=== PATIENT | female | born 1985 | race Caucasian/White ===

== ENCOUNTER 2018-04-02 10:49 | Emergency (ER) | payer MEDICAID ==
[2018-04-02 10:49] VITALS: BMI 28.9
[2018-04-02 11:04] VITALS: RESP 18
[2018-04-02 11:46] LABS: BASO % 0.4 % (0.0-2.0); EOS # 0.1 K/uL (0.0-0.7); EOS % 0.7 % (0.0-4.0); HEMOGLOBIN 12.7 g/dL (11.0-16.0); LYMPH # 2.7 K/uL (1.0-4.3); LYMPH % 37.4 % (20.0-40.0); MEAN CELL VOLUME 84.6 fL (81.0-99.0); MEAN CORPUSCULAR HEMOGLOBIN 27.9 pg (27.0-31.0); MEAN PLATELET VOLUME 7.9 fL (7.2-11.7); MONO # 0.5 K/uL (0.0-0.8); MONO % 7.2 % (0.0-10.0); NEUT # 3.9 K/uL (1.8-7.0); NEUT % 54.3 % (50.0-75.0); RBC 4.54 Mil/uL (3.80-5.20); RED CELL DISTRIBUTION WIDTH 13.8 % (11.5-14.5); WHITE BLOOD COUNT 7.2 K/uL (4.8-10.8)
[2018-04-02 11:55] LABS: URINE BILIRUBIN NEGATIVE (NEGATIVE); URINE BLOOD NEGATIVE (NEGATIVE); URINE CLARITY Clear (Clear); URINE COLOR Yellow (YELLOW); URINE GLUCOSE (UA) NORMAL (Normal); URINE LEUKOCYTE ESTERASE NEG Leu/uL (Negative); URINE PROTEIN NEGATIVE (NEGATIVE); URINE UROBILINOGEN NORMAL mg/dL (0.2-1.0)
[2018-04-02 11:59] LABS: ALB/GLOB RATIO 1.4 (1.0-2.1); ALBUMIN 4.4 g/dL (3.5-5.0); ALT/SGPT 21 U/L (9-52); AST/SGOT 14 U/L (14-36); BLOOD UREA NITROGEN 9 mg/dL (7-17); CALCIUM 8.8 mg/dl (8.6-10.4); GFR NON-AFRICAN AMERICAN > 60; LIPASE 109 U/L (23-300)
--- NOTE | 2018-04-02 13:09 | RAD ---
Abdomen three views History: Abdominal pain. Comparison: None available. Findings Lung fitzgerald are clear. Heart size within normal limits. Moderate fecal retention in the colon. Few mildly distended loops of small bowel seen in the mid abdomen. Impression: Moderate fecal retention in the colon.
[2018-04-02] MEDS ORDERED: Bisacodyl 5mg EC Tab PO ONE (13:40)
--- NOTE | 2018-04-02 13:57 | C.PDOC ---
History Of Present Illness 32 year old female presents to the emergency department with complaints of abdominal discomfort for the past 3 weeks. Patient states that her last bowel movement was one week ago and denies any nausea, vomiting, diarrhea, urinary symptoms, vaginal bleeding or vaginal discharge. Patient is able to tolerate food by mouth. Time Seen by Provider: 04/02/18 11:11 Chief Complaint (Nursing): Abdominal Pain History Per: Patient History/Exam Limitations: no limitations Onset/Duration Of Symptoms: Days Current Symptoms Are (Timing): Still Present Past Medical History Reviewed: Historical Data, Nursing Documentation, Vital Signs Vital Signs: Last Vital Signs Temp 98.3 F 04/02/18 14:18 Pulse 70 04/02/18 14:18 Resp 18 04/02/18 14:18 BP 125/83 04/02/18 14:18 Pulse Ox 99 04/02/18 14:44 - Medical History PMH: Diabetes - [facility] Procedures BREAST DX PROCEDURE NEC (05/01/14) DX ULTRASOUND-THORAX NEC (05/01/14) LOCAL EXCIS BREAST LES (07/31/14) PERCUTAN NEEDLE BIOPSY OF BREAST (05/01/14) Family History: States: No Known Family Hx - Social History Hx Tobacco Use: No Hx Alcohol Use: No Hx Substance Use: No Review Of Systems Except As Marked, All Systems Reviewed And Found Negative. Gastrointestinal: Positive for: Other (Abdominal discomfort) Physical Exam - Physical Exam Appears: Non-toxic, No Acute Distress Skin: Normal Color, Warm, Dry Head: Atraumatic, Normacephalic Eye(s): bilateral: Normal Inspection, PERRL, EOMI Nose: Normal Oral Mucosa: Moist Neck: Supple Chest: Symmetrical Cardiovascular: Rhythm Regular, No Murmur Respiratory: Normal Breath Sounds, No Rales, No Rhonchi, No Wheezing Gastrointestinal/Abdominal: Tenderness (minimal; diffusely), No Guarding, No Rebound Extremity: Bilateral: Atraumatic, Normal Color And Temperature, Normal ROM Neurological/Psych: Oriented x3, Normal Speech ED Course And Treatment - Laboratory Results Result Diagrams: 04/02/18 11:40 04/02/18 11:40 O2 Sat by Pulse Oximetry: 99 (RA) Pulse Ox Interpretation: Normal Medical Decision Making Medical Decision Making: Impression: Abdominal discomfort Plan: -Labs -Urinalysis -Dulcolax -Pepcid -Toradol Final diagnosis: Constipation On re-evaluation, patient is resting comfortably, tolerating PO, and abdomen remains soft. Patient will be discharged home and is advised to follow up with family doctor within the next 2 days. Disposition Counseled Patient/Family Regarding: Studies Performed, Diagnosis, Need For Followup, Rx Given - Disposition Referrals: Jess Obando [Medical Doctor] - Disposition: HOME/ ROUTINE Disposition Time: 13:54 Condition: STABLE Additional Instructions: follow up with your doctor within 2 days call to make an appointment take medications as prescribed return to ER if symptoms worsens or progress Prescriptions: Polyethylene Glycol 3350 [Miralax] 17 g PO DAILY PRN #10 packet PRN Reason: Constipation Instructions: Constipation in Adults Forms: Gen Discharge Inst Turkmen, [facility] [employer] (Turkmen), Work Excuse Print Language: ROMANIAN - Clinical Impression Clinical Impression: Constipation - Scribe Statement The provider has reviewed the documentation as recorded by the Shirleneibcaroline Reece Provider Attestation: All medical record entries made by the Scribe were at my direction and personally dictated by me. I have reviewed the chart and agree that the record accurately reflects my personal performance of the history, physical exam, medical decision making, and the department course for this patient. I have also personally directed, reviewed, and agree with the discharge instructions and disposition.
[2018-04-02 14:18] VITALS: BP 125/83; PULSE 70; TEMP 98.3
[2018-04-02 14:37] VITALS: O2SAT 99
== END 2018-04-02 14:35 | disposition home or self-care (01) ==
LOC: C.ER 10:49
DX: K59.00 Constipation, unspecified (principal)
CPT/HCPCS: 74022; 80053; 81001; 83690; 85025; 96374; 96375; 99284; J1885